=== PATIENT | female | born 1950 | race Caucasian/White ===

== ENCOUNTER → 2018-02-20 | Outpatient (CLI) | payer OTHER, BC ==
[~2018-02-20] VITALS: Ht 165.1 cm; Wt 67.6 kg
[~2018-02-20] MED LIST: ALEVE220 MG; CENTRUM SILVER1 EAC4 PO; CRESTOR40 MG PO; IBUPROFEN 200200 M1 PO; LEVOXYL88 MCG PO; PROZAC10 MG PO; PROZAC20 MG PO; TYLENOL EXTRA500 MG PO; WELLBUTRIN SR150 MG PO
--- NOTE | ~2018-02-20 | P ---
[facility] [place] [address] [place] [address] PROCEDURE REPORT Name: DOTYCHRISTINA Room #: REG MARISSA Mayfield#: [id number] Admission: 02/20/18 Attend Phys: Mick Nicholson DO Discharge: Date of : 46 Report #: [id number] THIS REPORT FOR: //name// CC: FAM physician/PCP Mick Workman NP DATE OF SERVICE: 02/20/2018 DESCRIPTION OF PROCEDURE: L5-S1 left paramedian epidural steroid injection under fluoroscopic guidance. This is the third procedure of the first series that the patient is undergoing. After obtaining written consent, the patient was taken back to the fluoroscopy suite, placed in a prone position with pillow under the abdomen to decrease lumbar lordosis. The skin overlying the lumbosacral area was then prepped and draped in aseptic fashion. The L5-S1 vertebral interspace was then identified by AP fluoroscopy. The skin and subcutaneous tissue overlying the target site of injection was anesthetized with 3 mL 1% lidocaine. A 20-gauge 3-1/2-inch Tuohy needle was then advanced under fluoroscopic guidance towards the epidural space using a left paramedian approach. The epidural space was identified using loss of resistance to air technique. After negative aspiration for heme or cerebrospinal fluid, a total of 0.5 mL of Omnipaque was injected. A lumbar epidurogram was confirmed using both AP and lateral fluoroscopy. After negative aspiration for heme or cerebrospinal fluid, 4 mL of a solution containing 2 mL 40 mg per mL, 80 mg total triamcinolone and 2 mL of lidocaine 1% was injected in increments. Contrast spread was noted posterior epidural space. The needle was then retracted approximately half way and needle tract flushed with 1 mL of 1% lidocaine. Needle was then removed. There were no apparent sensory or motor deficits in the lower extremity following the procedure. A sterile bandage was placed over the injection site. The heart rate, pulse, oximetry and blood pressure were continuously monitored after the procedure. There were no apparent complications. The patient tolerated the procedure well and was carefully escorted to the recovery room in stable condition. There were no apparent complications. After meeting discharge criteria, the patient was then discharged home. By: [id number] Mick Nicholson DO /nt
--- NOTE | ~2018-02-20 | HPC ---
[facility] [place] [address] [place] [address] PAIN MANAGEMENT CONSULTATION Name: CHRISTINA DOTY SONYA Room #: REG MARISSA Chaparro#: [id number] Admission: 02/20/18 Attend Phys: Mick Nicholson DO Discharge: Date of : 46 Report #: [id number] THIS REPORT FOR: //name// CC: FAM physician/PCP Mick Workman NP DATE OF SERVICE: 02/20/2018 CHIEF COMPLAINT: Low back pain, left lower extremity pain with paresthesias. HISTORY OF PRESENT ILLNESS: As you know, the patient is a very pleasant 67-year-old female who returns today in followup visit per the request of her neurosurgery team to undergo the third in the series of lumbar epidural injections in the 6 months. The patient underwent epidural injections 10/17/2017, repeating epidural injection 11/01/2017. She reports the combination of these injections provided greater than 50% improvement in overall pain. Unfortunately, the patient's symptoms have begun to return. She returns today in followup visit to undergo next in the series of requested lumbar epidural injections completing the 3 in the 6 months. She denies new injury, new trauma or any changes in medical history since our last visit. ALLERGIES: PAROXETINE. CURRENT MEDICATIONS: Acetaminophen, ibuprofen, naproxen, multivitamin, levothyroxine, fluoxetine, lovastatin, bupropion. SOCIAL HISTORY: The patient denies tobacco, alcohol, IV or illicit drug use. She is retired in 2009, unaccompanied today. IMAGING: No new imaging available. PQRS: The patient has osteoarthritic changes in low back. No rheumatoid arthritis. She has a pain intensity today reported at around 6/10. She is not a fall risk, has not had a fall in the last 3 months. She is not on blood thinners, nor she is treated for hypertension. She is not on opioid and does have a low opioid addiction potential. She is placing pain impact score 61/70, severe interference to near complete interference of daily activities secondary to pain. PHYSICAL EXAMINATION: VITAL SIGNS: Blood pressure 139/64, pulse 77, respiratory rate 14 and unlabored. The patient is 98% on room air. Height 5 feet 5 inches tall, weight 149 pounds, BMI calculated 24.8. GENERAL: Well-developed, well-nourished, well-hydrated 67-year-old female [address] [address] PAIN MANAGEMENT CONSULTATION Name: CHRISTINA DOTY SONYA Room #: REG MARISSA Chaparro#: [id number] Admission: 02/20/18 Attend Phys: Mick Nicholson DO Discharge: Date of : 46 Report #: [id number] appearing stated age. She is placing current pain score at around 6/10. HEENT: Normocephalic, atraumatic. Pupils equal, round, reactive to light. Extraocular muscles are intact. EXTREMITIES: Show no clubbing, no cyanosis, no edema. MUSCULOSKELETAL: Lower extremity strength is symmetrical again today 5/5. Seated straight leg raising negative. Supine straight leg raising positive on the left. Jc's test negative. Gait mildly antalgic favoring left lower extremity over right. ASSESSMENT: 1. Symptomatic lumbar radiculopathy. 2. Spinal stenosis of lumbar spine. 3. Neuroforaminal stenosis of the lumbar spine. 4. Displacement of lumbar intervertebral disk with radiculopathy. 5. Lumbosacral spondylosis with radiculopathy. 6. Lumbar degeneration. 7. Chronic intractable pain. PLAN: 1. The patient returns today in followup visit requesting to undergo next in the series of epidural injections. She states the combination of the 2 injections in October provided 50% improvement in overall pain lasting until just recently where she has a slow and progressive return of symptoms. She believes that her symptoms have progressed due to increasing activity over the holidays. She returns requesting the third in the 6-month series of epidural injections. She is advised risks and benefits, states she understood and wished to proceed. 2. No medication changes made at today's visit. The patient will continue current medication management as previously prescribed. 3. We will see the patient back in followup visit on an as needed basis for possible next in the series of lumbar epidural injections. By: [id number] Mick Nicholson DO /nt
[2018-02-20 12:54] VITALS: BP 139/64
--- NOTE | 2018-02-20 12:58 | NUR ---
Pain Clinic Assessment: 1. History of Osteoarthritis: Not Applicable History of Rheumatoid Arthritis: Not Applicable 2. Height: 5 ft. 5 in. 165.1 cm. Weight: 149.0 lb. oz. 67.586 kg. Patient's BMI: 24.8 3. Vital Signs: BP: 139/64 Pulse: 77 Resp: 14 Temp: 02 Sat: 98 ECG Mon: 4. Pain Intensity: 6 5. Fall Risk: Dizziness: N Needs help standing or walking: N Fallen in the last 3 months: N Fall risk comments: 6. Patient on Blood Thinner: None 7. History of Hypertension: N 8. Opioid Therapy greater than 6 weeks: N Opiate Contract Signed: 9. Risk Assessment Tool Provided: LOW RISK 02/15 10. Functional Assessment Tool: 11. Recreational Drug Use: Never Drug Type: Tobacco Use: Never Smoker Tobacco Type: Amount or Packs/day: How Many Years: Alcohol Use: No Frequency: Quant:
== END | disposition home or self-care (01) ==
LOC: PAIN 01-24 16:53
DX: M51.16 Intervertebral disc disorders with radiculopathy, lumbar region (principal); M48.061 Spinal stenosis, lumbar region without neurogenic claudication; M47.27 Other spondylosis with radiculopathy, lumbosacral region; G89.29 Other chronic pain; Z88.8 Allergy status to other drugs, medicaments and biological substances; Z79.899 Other long term (current) drug therapy

== ENCOUNTER → 2018-12-05 | Outpatient (CLI) | payer OTHER, BC ==
[~2018-12-05] VITALS: Ht 165.1 cm; Wt 63.5 kg
[2018-12-05 10:43] VITALS: BP 117/57
--- NOTE | 2018-12-05 10:53 | NUR ---
Pain Clinic Assessment: 1. History of Osteoarthritis: Not Applicable History of Rheumatoid Arthritis: Not Applicable 2. Height: 5 ft. 5 in. 165.1 cm. Weight: 140.0 lb. oz. 63.504 kg. Patient's BMI: 23.3 3. Vital Signs: BP: 117/57 Pulse: 82 Resp: 16 Temp: 02 Sat: 96 ECG Mon: 4. Pain Intensity: 7 5. Fall Risk: Dizziness: N Needs help standing or walking: N Fallen in the last 3 months: N Fall risk comments: 6. Patient on Blood Thinner: None 7. History of Hypertension: N 8. Opioid Therapy greater than 6 weeks: N Opiate Contract Signed: 9. Risk Assessment Tool Provided: LOW RISK 02/15 10. Functional Assessment Tool: 11. Recreational Drug Use: Never Drug Type: Tobacco Use: Never Smoker Tobacco Type: Amount or Packs/day: How Many Years: Alcohol Use: No Frequency: Quant:
--- NOTE | 2018-12-18 12:48 | HPC ---
[facility] [address] [place] [address] PAIN MANAGEMENT CONSULTATION Name: CHRISTINA DOTY SONYA Room #: REG MARISSA Chaparro#: [id number] Admission: 12/05/18 Attend Phys: Mick Nicholson DO Discharge: Date of : 46 Report #: [id number] THIS REPORT FOR: //name// CC: [facility] physician/PCP Mick Workman NP DATE OF SERVICE: 12/05/2018 CHIEF COMPLAINT: Low back pain, left lower extremity pain and paresthesias. HISTORY OF PRESENT ILLNESS: As you know, patient is a 68-year-old female who returns today in followup visit with recurrent lumbar radicular symptoms, now placing pain score 7/10. The patient reports excellent benefit with previous epidural injection, adding 80% improvement in overall pain until just recently where she had a slow and progressive return of symptoms. She returns today in followup visit requesting to undergo next in the series of lumbar epidural injections to build on success of previous intervention. The patient denies injury or trauma that may have led to symptom development. She is placing her pain score today 7/10. ALLERGIES: PAROXETINE. CURRENT MEDICATIONS: Acetaminophen, ibuprofen, naproxen, multivitamin, levothyroxine, fluoxetine, lovastatin, and bupropion. SOCIAL HISTORY: The patient denies tobacco, alcohol, IV or illicit drug use. She retired in 2009, not receiving workmen's compensation, unaccompanied today. IMAGING: No new imaging available. PQRS: The patient has known osteoarthritic changes of the lumbar spine. No rheumatoid arthritis. She is placing pain intensity is 7/10, not a fall risk, has not had a fall in last 3 months. She takes no blood thinners. She is not treated for hypertension. She is not on chronic opioid. She has a low opioid addiction potential based on our assessment tool. Pain impact score 38/70 moderate interference of daily activities secondary to pain. PHYSICAL EXAMINATION: VITAL SIGNS: Blood pressure 117/57, pulse 82, respiratory rate 16 and unlabored. The patient is 96% on room air. Height 5 feet 5 inches tall, weight 140 pounds and BMI calculated 23.3. GENERAL: Well-developed, well-nourished, well-hydrated 68-year-old female appearing stated age, pain is rated today at 7/10. HEENT: Normocephalic, atraumatic. Pupils equal, round, reactive to light. [facility] [address] [place] [address] PAIN MANAGEMENT CONSULTATION Name: CHRISTINA DOTY SONYA Room #: REG CLI Chaparro#: [id number] Admission: 12/05/18 Attend Phys: Mick Nicholson DO Discharge: Date of : 46 Report #: [id number] Speech fluent. EXTREMITIES: Show no clubbing, no cyanosis, and no edema. MUSCULOSKELETAL: Lower extremity strength is symmetrical again today. Muscle bulk and tone equal and symmetrical in comparing left lower extremity to right. Seated straight leg raising negative. Supine straight leg raising positive on the left. Gait is improved, but remains mildly antalgic on the left. ASSESSMENT: 1. Symptomatic lumbar radiculopathy. 2. Spinal stenosis of lumbar spine. 3. Neural foraminal stenosis of lumbar spine. 4. Displacement of lumbar intervertebral disk with radiculopathy. 5. Lumbosacral spondylosis with radiculopathy. 6. Lumbar degeneration. 7. Chronic intractable pain. PLAN: 1. The patient returns today in followup visit requesting to undergo next in the series of lumbar epidural injections under fluoroscopic guidance. The patient reports about 80% improvement in overall pain with previous epidural injection lasting until just recently where she has had a slow and progressive return of symptoms. She returns today in followup visit requesting to undergo the next in the series of epidural injections in hopes of improving overall pain and building on success of previous intervention. The patient has been advised risks and benefits of procedure, states understood and wished to proceed. 2. No medication changes made at today's visit. The patient will continue current medical therapy as previously prescribed. 3. We will see the patient back in followup visit on an as needed basis for possible next in the series of lumbar epidural injections. PROCEDURE NOTE DESCRIPTION OF PROCEDURE: L5-S1 left parasagittal epidural steroid injection under fluoroscopic guidance. After obtaining written consent, patient was taken back to fluoroscopy suite, placed in prone position with pillow under abdomen to decrease lumbar lordosis. Skin overlying lumbosacral area then prepped and draped in aseptic fashion. The L5-S1 vertebral interspace identified by AP fluoroscopy. Skin and subcutaneous tissue overlying target site of injection anesthetized with 3 mL of 1% lidocaine. A 20-gauge 3-1/2 inch Tuohy needle advanced under fluoroscopic guidance towards the epidural space using a left parasagittal approach. Epidural space identified using loss of resistance to air technique. After negative aspiration for heme or cerebrospinal fluid, 1 mL of Omnipaque injected. A lumbar [facility] [address] [place] [address] PAIN MANAGEMENT CONSULTATION Name: CHRISTINA DOTY SONYA Room #: REG CLOksana Mayfield#: [id number] Admission: 12/05/18 Attend Phys: Mick Nicholson DO Discharge: Date of : 46 Report #: [id number] epidurogram was confirmed using both AP and lateral fluoroscopy. After negative aspiration for heme or cerebrospinal fluid, 5 mL of solution containing 2 mL 40 mg per mL, 80 mg total triamcinolone along with 3 mL of lidocaine 1% injected slowly. Needle then retracted assisted, flushed with 1 mL of 1% lidocaine and removed. Sterile bandage placed over injection site. No new motor deficits present in the lower extremities following procedure. The patient tolerated the procedure well, carefully escorted to recovery room in stable condition. No apparent complications. After meeting our discharge criteria, patient discharged home. <ELECTRONICALLY SIGNED> By: Mick Nicholson DO 12/18/18 [id number] Mick Nicholson DO /nt
== END | disposition home or self-care (01) ==
LOC: PAIN 06:56
DX: M51.16 Intervertebral disc disorders with radiculopathy, lumbar region (principal); M48.061 Spinal stenosis, lumbar region without neurogenic claudication; M47.27 Other spondylosis with radiculopathy, lumbosacral region; G89.29 Other chronic pain; Z98.890 Other specified postprocedural states; Z88.8 Allergy status to other drugs, medicaments and biological substances; Z79.899 Other long term (current) drug therapy

== ENCOUNTER → 2019-03-05 | Outpatient (CLI) | payer OTHER, BC ==
[~2019-03-05] VITALS: Ht 165.1 cm; Wt 62.9 kg
[2019-03-05 10:13] VITALS: BP 120/69
--- NOTE | 2019-03-05 10:39 | NUR ---
Pain Clinic Assessment: 1. History of Osteoarthritis: Not Applicable History of Rheumatoid Arthritis: Not Applicable 2. Height: 5 ft. 5 in. 165.1 cm. Weight: 138.6 lb. oz. 62.868 kg. Patient's BMI: 23.1 3. Vital Signs: BP: 120/69 Pulse: 76 Resp: 14 Temp: 02 Sat: 97 ECG Mon: 4. Pain Intensity: 7 5. Fall Risk: Dizziness: N Needs help standing or walking: N Fallen in the last 3 months: N Fall risk comments: 6. Patient on Blood Thinner: None 7. History of Hypertension: N 8. Opioid Therapy greater than 6 weeks: N Opiate Contract Signed: 9. Risk Assessment Tool Provided: LOW RISK 02/15 10. Functional Assessment Tool: 11. Recreational Drug Use: Never Drug Type: Tobacco Use: Never Smoker Tobacco Type: Amount or Packs/day: How Many Years: Alcohol Use: No Frequency: Quant:
--- NOTE | 2019-03-06 11:48 | HPC ---
[facility] [place] [address] PAIN MANAGEMENT CONSULTATION Name: CHRISTINA DOTY SONYA Room #: REG MARISSA Kitty.#: [id number] Admission: 03/05/19 Attend Phys: Mick Nicholson DO Discharge: Date of : 46 Report #: [id number] THIS REPORT FOR: //name// CC: ROBERT Mario MD Physician staff GEOFF JIMENEZ DATE OF SERVICE: 03/05/2019 CHIEF COMPLAINT: Low back pain, left lower extremity pain with paresthesias. HISTORY OF PRESENT ILLNESS: As you know, the patient is a 68-year-old female returning in followup visit to undergo next in the series of lumbar epidural injections under fluoroscopic guidance. The last epidural injection she underwent gave 75% improvement in overall pain, lasting for greater than 2 months. Unfortunately, she has had a slow and progressive return of symptoms. She is now placing her pain score at around 7/10. She returns today in followup visit to undergo next in the series of epidural injections. ALLERGIES: PAROXETINE. CURRENT MEDICATIONS: Acetaminophen, ibuprofen, naproxen, multivitamin, levothyroxine, fluoxetine, lovastatin and bupropion. SOCIAL HISTORY: The patient denies tobacco, alcohol, IV or illicit drug use. She retired in 2009, unaccompanied today. IMAGING: No new imaging available. PQRS: The patient has known arthritic changes of the lumbar spine. No rheumatoid arthritis. She is placing pain today at 7/10. Not a fall risk, has not had a fall in last 3 months. She is not on blood thinners, nor she is treated for hypertension. She is not on chronic opioids, has a low opioid addiction potential. Pain impact score 61/70, indicating severe interference of daily activities secondary to pain. PHYSICAL EXAMINATION: VITAL SIGNS: Blood pressure 120/69, pulse 76, respiratory rate 14 and unlabored. The patient is 97% on room air. Height 5 feet 5 inches tall, weight 138 pounds, BMI calculated 23.1. GENERAL: Well-developed, well-nourished, well-hydrated 68-year-old female, appearing stated age, pain is rated today 7/10. HEENT: Normocephalic, atraumatic. Pupils equal, round, reactive to light. Speech fluent. [address] [address] PAIN MANAGEMENT CONSULTATION Name: CHRISTINA DOTY SONYA Room #: REG [facility] Kitty.#: [id number] Admission: 03/05/19 Attend Phys: Mick Nicholson DO Discharge: Date of : 46 Report #: [id number] EXTREMITIES: Show no clubbing, no cyanosis and no edema. MUSCULOSKELETAL: Lower extremity strength equal and symmetrical, 5/5. Muscle bulk and tone equal and symmetrical in comparing lower extremities. Gait is mildly antalgic, favoring left lower extremity. Ankle clonus negative. Babinski is negative. Seated straight leg raising negative. Supine straight leg raising positive on the left. ASSESSMENT: 1. Symptomatic lumbar radiculopathy. 2. Spinal stenosis of the lumbar spine. 3. Neural foraminal stenosis of the lumbar spine. 4. Displacement of lumbar intervertebral disk with radiculopathy. 5. Lumbosacral spondylosis with radiculopathy. 6. Lumbar degeneration. 7. Chronic intractable pain. PLAN: 1. The patient returns today in followup visit to undergo next in the series of lumbar epidural injections under fluoroscopic guidance. She reports greater than 75% improvement in overall pain, lasting for nearly 2 months. She returns today with recurrent pain, now placing pain score at 7/10, requesting next in series of epidural injections. She has been advised risks and benefits of procedure, states she understood and wished to proceed. 2. No medication changes made at today's visit. The patient will continue current medical therapy as prior prescribed. 3. We will see the patient back in followup visit on an as needed basis for possible next in the series of lumbar epidural injections. PROCEDURE NOTE DESCRIPTION OF PROCEDURE: L5-S1 left parasagittal epidural steroid injection under fluoroscopic guidance. After obtaining written consent, the patient was taken back to fluoroscopy suite, placed in prone position with pillow under abdomen to decrease lumbar lordosis. Skin overlying lumbosacral area then prepped and draped in aseptic fashion. The L5-S1 vertebral interspace identified by AP fluoroscopy. Skin and subcutaneous tissue overlying target site of injection anesthetized with 3 mL of 1% lidocaine. A 20-gauge 3-1/2 inch Tuohy needle advanced under fluoroscopic guidance towards the epidural space using a left parasagittal approach. Epidural space identified using loss of resistance to air technique. After negative aspiration for heme or cerebrospinal fluid, 1 mL of Omnipaque injected. A lumbar epidurogram confirmed using both AP and lateral fluoroscopy. After negative aspiration for heme or cerebrospinal fluid, 5 mL of a solution containing 2 mL [facility] [address] [place] [address] PAIN MANAGEMENT CONSULTATION Name: CHRISTINA DOTY #: REG MARISSA Mayfield#: [id number] Admission: 03/05/19 Attend Phys: Mick Nicholson DO Discharge: Date of : 46 Report #: [id number] 40 mg per mL, 80 mg total triamcinolone along with 3 mL lidocaine 1% injected slowly. Needle retracted approximately half way, flushed with 1 mL of 1% lidocaine and then removed. Sterile bandage placed over injection site. No new motor deficits present in lower extremity following procedure. The patient tolerated procedure well, carefully escorted to recovery room in stable condition. No apparent complications. After meeting discharge criteria, the patient discharged home. <ELECTRONICALLY SIGNED> By: Mick Nicholson DO 03/06/19 1148 1336 05 Mick Nicholson DO /nt
== END | disposition home or self-care (01) ==
LOC: PAIN 06:48
DX: M51.16 Intervertebral disc disorders with radiculopathy, lumbar region (principal); M48.061 Spinal stenosis, lumbar region without neurogenic claudication; M47.27 Other spondylosis with radiculopathy, lumbosacral region; G89.29 Other chronic pain; Z98.890 Other specified postprocedural states; Z79.899 Other long term (current) drug therapy; Z88.8 Allergy status to other drugs, medicaments and biological substances

== ENCOUNTER → 2019-08-27 | Outpatient (CLI) | payer OTHER, BC ==
[~2019-08-27] VITALS: Ht 165.1 cm; Wt 55.6 kg
[~2019-08-27] MED LIST changes: +LEVOXYL100 MCG PO; -LEVOXYL88 MCG PO; +VITAMIN D325 MC1 PO
--- NOTE | ~2019-08-27 | HPC ---
[facility] [place] [address] PAIN MANAGEMENT CONSULTATION Name: CHRISTINA DOTY Room #: REG MARISSA CastroMeenuLizbeth.#: [id number] Admission: 08/27/19 Attend Phys: Mick Nicholson DO Discharge: Date of : 46 Report #: [id number] THIS REPORT FOR: cc: ROBERT CRENSHAW Physician not on staff Mick Nicholson DO ~ CC: ROBERT Mario MD Physician staff Staci Workman NP DATE OF SERVICE: 08/27/2019 CHIEF COMPLAINT: Low back pain, left lower extremity pain and paresthesias. HISTORY OF PRESENT ILLNESS: As you know, the patient is a 68-year-old female returning in followup visit with recurrent lumbar radicular symptoms. She is placing her current pain score at around 8/10. She reports the previous epidural injection gave 80% improvement in overall pain lasting for nearly 5 months. Unfortunately, her symptoms have begun to return. She is describing pain involving low back and left lower extremity. She describes the pain as radiating, continuous, shooting and fatiguing in its presentation. She returns today in followup visit, denying any new injury or trauma that may have led to symptom reoccurrence. She returns for the next in the series of epidural injections. ALLERGIES: PAROXETINE. CURRENT MEDICATIONS: Bupropion SR 150 mg once a day, rosuvastatin 40 mg per day, Prozac 20 mg per day, levothyroxine 100 mcg per day, multivitamin 1 tab per day, naproxen sodium 220 mg per day, acetaminophen extra strength 500 mg once a day, cholecalciferol 50 mcg per day. SOCIAL HISTORY: The patient denies tobacco, alcohol, IV or illicit drug use. She retired in 2009. She is unaccompanied today. IMAGING: No new imaging available. PQRS: The patient has known arthritic changes of the lumbar spine. No rheumatoid arthritis, placing pain score at 8/10. She is not a fall risk and has not had a fall in last 3 months. She is not on blood thinners, nor is she treated for hypertension. She is not on chronic opioids and has a low opioid addiction potential. Pain impact score 61/70, severe near complete interference of daily activities secondary to pain. [address] [address] PAIN MANAGEMENT CONSULTATION Name: CHRISTINA DOTY SONYA Room #: REG [facility] Chaparro#: [id number] Admission: 08/27/19 Attend Phys: Mick Nicholson DO Discharge: Date of : 46 Report #: [id number] PHYSICAL EXAMINATION: VITAL SIGNS: Blood pressure 115/66, pulse 80, respiratory rate 16 and unlabored. The patient is 97% on room air. Height 5 feet 5 inches tall, weight 122.6 pounds, BMI calculated 20.4. GENERAL: Well-developed, well-nourished, well-hydrated 68-year-old female appearing her stated age. She is in no acute distress, awake, alert and oriented x 3, pain is rated today at 8/10. HEENT: Normocephalic, atraumatic. Pupils equal, round and reactive. Speech is fluent. EXTREMITIES: Show no clubbing, no cyanosis, and no edema. MUSCULOSKELETAL: Lower extremity strength equal and symmetrical 5/5, intact to light touch from L1 through S2 dermatomes. Seated straight leg raising negative. Supine straight leg raising positive on the left. Jc's test negative. Gait mildly antalgic favoring left lower extremity. ASSESSMENT: 1. Symptomatic lumbar radiculopathy. 2. Spinal stenosis of lumbar spine. 3. Neural foraminal stenosis of lumbar spine. 4. Displacement of lumbar intervertebral disk with radiculopathy. 5. Lumbosacral spondylosis with radiculopathy. 6. Lumbar degeneration. 7. Chronic intractable pain. PLAN: 1. The patient returns today in followup visit requesting to undergo next in the series of lumbar epidural injections under fluoroscopic guidance. Pain is well controlled with previous epidural injection for which the patient received about 80% improvement in overall pain lasting for up to 5 months. Unfortunately, her symptoms have begun to return. She returns today in followup visit to undergo next in the series. The patient has been advised risks and benefits of a lumbar epidural injection. These risks include but are not necessarily limited to bleeding, bruising, infection, worsening pain, no relief of pain, also risk of temporary or permanent muscle weakness, temporary or permanent nerve damage, possible paralysis and . The patient states understood and wished to proceed. 2. No medication changes made at today's visit. The patient will continue current medical therapy as prior prescribed. 3. We will see the patient back in followup visit on an as needed basis possible next in the series of lumbar epidural injections. We are hopeful the patient will see good and prolonged benefit with today's procedure. PROCEDURE NOTE: DESCRIPTION OF PROCEDURE: L5-S1 interlaminar epidural steroid injection under [facility] [address] [place] [address] PAIN MANAGEMENT CONSULTATION Name: CHRISTINA DOTY [facility] #: [facility] [id number] Admission: 08/27/19 Attend Phys: Mick Nicholson DO Discharge: Date of : 46 Report #: [id number] fluoroscopic guidance. After obtaining written consent, the patient was taken back to fluoroscopy suite, placed in prone position with pillow under abdomen to decrease lumbar lordosis. Skin overlying the lumbosacral area then prepped and draped in aseptic fashion. Lumbar intervertebral spaces were identified by AP fluoroscopy. Skin and subcutaneous tissue overlying target site of injection anesthetized with 3 mL of 1% lidocaine. A 20-gauge 3-1/2 inch Tuohy needle advanced under fluoroscopic guidance towards the epidural space using a paramedian approach. Epidural space identified using loss of resistance to air technique. After negative aspiration for heme or cerebrospinal fluid, 1 mL of Omnipaque injected. Lumbar epidurogram confirmed using both the AP and lateral fluoroscopy. After negative aspiration for heme or cerebrospinal fluid, 5 mL of a solution containing 2 mL 40 mg per mL, 80 mg total triamcinolone along with 3 mL of lidocaine 1% injected slowly. Needle retracted approximately half way, flushed with 1 mL of 1% lidocaine and then removed. Sterile bandage placed over injection site. No new motor deficits present in lower extremity following procedure. The patient tolerated procedure well, carefully escorted to recovery room in stable condition. No apparent complications. After meeting discharge criteria, the patient discharged home. By: [id number] Mick Nicholson DO /nt
[2019-08-27 08:30] VITALS: BP 115/66
--- NOTE | 2019-08-27 08:52 | NUR ---
Pain Clinic Assessment: 1. History of Osteoarthritis: Not Applicable History of Rheumatoid Arthritis: Not Applicable 2. Height: 5 ft. 5 in. 165.1 cm. Weight: 122.6 lb. oz. 55.611 kg. Patient's BMI: 20.4 3. Vital Signs: BP: 115/66 Pulse: 80 Resp: 16 Temp: 02 Sat: 97 ECG Mon: 4. Pain Intensity: 8 5. Fall Risk: Dizziness: N Needs help standing or walking: N Fallen in the last 3 months: Y Fall risk comments: 6. Patient on Blood Thinner: None 7. History of Hypertension: N 8. Opioid Therapy greater than 6 weeks: N Opiate Contract Signed: 9. Risk Assessment Tool Provided: LOW RISK 02/15 10. Functional Assessment Tool: 11. Recreational Drug Use: Never Drug Type: Tobacco Use: Never Smoker Tobacco Type: Amount or Packs/day: How Many Years: Alcohol Use: No Frequency: Quant:
== END | disposition home or self-care (01) ==
LOC: PAIN 06:50
PROVIDERS: ATTEND Anesthesiology Pain Medicine
DX: M51.16 Intervertebral disc disorders with radiculopathy, lumbar region (principal); M48.061 Spinal stenosis, lumbar region without neurogenic claudication; M47.27 Other spondylosis with radiculopathy, lumbosacral region; G89.29 Other chronic pain; Z98.890 Other specified postprocedural states; Z79.899 Other long term (current) drug therapy

== ENCOUNTER → 2019-10-01 | Outpatient (CLI) | payer OTHER, BC ==
[~2019-10-01] VITALS: Ht 160 cm; Wt 55.2 kg
--- NOTE | 2019-10-01 12:43 | NUR ---
Pain Clinic Assessment: 1. History of Osteoarthritis: Not Applicable History of Rheumatoid Arthritis: Not Applicable 2. Height: ft. in. cm. Weight: lb. oz. kg. Patient's BMI: 3. Vital Signs: BP: Pulse: Resp: Temp: 02 Sat: ECG Mon: 4. Pain Intensity: 9 5. Fall Risk: Dizziness: N Needs help standing or walking: N Fallen in the last 3 months: N Fall risk comments: 6. Patient on Blood Thinner: None 7. History of Hypertension: N 8. Opioid Therapy greater than 6 weeks: N Opiate Contract Signed: 9. Risk Assessment Tool Provided: LOW RISK 02/15 10. Functional Assessment Tool: / 11. Recreational Drug Use: Never Drug Type: Tobacco Use: Never Smoker Tobacco Type: Amount or Packs/day: How Many Years: Alcohol Use: No Frequency: Quant:
[2019-10-01 12:52] VITALS: BP 100/66
--- NOTE | 2019-10-01 12:52 | NUR ---
Pain Clinic Assessment: 1. History of Osteoarthritis: Not Applicable History of Rheumatoid Arthritis: Not Applicable 2. Height: 5 ft. 3 in. 160.0 cm. Weight: 121.8 lb. oz. 55.248 kg. Patient's BMI: 21.6 3. Vital Signs: BP: 100/66 Pulse: 83 Resp: 18 Temp: 02 Sat: 98 ECG Mon: 4. Pain Intensity: 9 5. Fall Risk: Dizziness: N Needs help standing or walking: N Fallen in the last 3 months: N Fall risk comments: 6. Patient on Blood Thinner: None 7. History of Hypertension: N 8. Opioid Therapy greater than 6 weeks: N Opiate Contract Signed: 9. Risk Assessment Tool Provided: LOW RISK 02/15 10. Functional Assessment Tool: 11. Recreational Drug Use: Never Drug Type: Tobacco Use: Never Smoker Tobacco Type: Amount or Packs/day: How Many Years: Alcohol Use: No Frequency: Quant:
--- NOTE | 2019-10-02 12:57 | HPC ---
[facility] [place] [address] [place] [address] PAIN MANAGEMENT CONSULTATION Name: DOTYCHRISTINAION HASSAN Room #: REG Oksana Mayfield#: [id number] Admission: 10/01/19 Attend Phys: Mick Nicholson DO Discharge: Date of : 46 Report #: [id number] THIS REPORT FOR: cc: ROBERT CRENSHAW Physician not on staff Mick Nicholson DO ~ DATE OF SERVICE: 10/01/2019 CHIEF COMPLAINT: Low back pain, lower extremity pain with paresthesias, left greater than right. HISTORY OF PRESENT ILLNESS: As you know, the patient is a 69-year-old female returning in followup visit for lumbar radiculopathy. As you are aware, the patient has severe central canal stenosis at the L4-L5 level with reduction of thecal sac to only 5 mm and this is based on imaging from 2018. She underwent epidural injection under fluoroscopic guidance at her last visit, which unfortunately did not provide long-term analgesic benefit. The patient reports that she is now at a pain level of 9/10. She describes the pain as radiating, continuous, shooting and fatiguing in nature. Pain exacerbates activities, getting up from chairs, walking and standing, improves with moving carefully and previous epidural injections. She reports that this last injection gave 50% improvement in overall pain lasting for about 2 weeks. She denies new injury or trauma that may have led to symptom reoccurrence. She returns today to undergo the next in the series of epidural injections in hopes of improving pain. She has not followed up with Neurosurgery to date. ALLERGIES: PAROXETINE. CURRENT MEDICATIONS: See chart. SOCIAL HISTORY: The patient denies tobacco, alcohol, IV or illicit drug use. She retired in 2009. She is unaccompanied today. IMAGING: No new imaging available. PQRS: The patient has known arthritic changes of the lumbar spine. No rheumatoid arthritis. She is placing pain intensity 9/10. She is not a fall risk nor she had a fall in last 3 months. She is not on blood thinners, nor she is treated for hypertension. She is not on chronic opioids, has a low opiate addiction potential. Pain impact is 61/70, severe interference of daily activities secondary to pain. PHYSICAL EXAMINATION: VITAL SIGNS: Blood pressure 100/66, pulse 83, respiratory rate 18 and unlabored. The patient is 98% on room air. Height 5 feet 3 inches tall, weight [facility] [address] [place] [address] PAIN MANAGEMENT CONSULTATION Name: CHRISTINA DOTY SONYA Room #: REG CLI [facility]#: [id number] Admission: 10/01/19 Attend Phys: Mick Nicholson DO Discharge: Date of : 46 Report #: [id number] 121.8 pounds, BMI calculated 21.6. GENERAL: Well-developed, well-nourished, well-hydrated 69-year-old female appearing stated age, pain is rated today 9/10. HEENT: Normocephalic, atraumatic. Pupils are equal, round and reactive. NEUROLOGIC: Speech fluent. The patient is wearing a mask in response to COVID restrictions. EXTREMITIES: Show no clubbing, no cyanosis, no edema. MUSCULOSKELETAL: Lower extremity strength is symmetrical 5/5, intact to light touch from L1 through S2 dermatomes. Seated straight leg raising is positive. Supine straight leg raising is positive, both on the left. Jc's test is negative. Gait is antalgic favoring left lower extremity over right. Muscle bulk and tone appears symmetrical in comparing lower extremities. ASSESSMENT: 1. Symptomatic lumbar radiculopathy. 2. Progressively worsening spinal stenosis of the lumbar spine. 3. Neural foraminal stenosis of the lumbar spine. 4. Displacement of lumbar intervertebral disk with radiculopathy. 5. Lumbosacral spondylosis with radiculopathy. 6. Lumbar degeneration. 7. Chronic intractable pain. PLAN: 1. The patient returns today in followup visit requesting to undergo lumbar epidural injection under fluoroscopic guidance. She reports only a 50% improvement in overall pain lasting for just 2 weeks with previous epidural injection. We reviewed the films of the fluoroscopic imaging from our last visit and had excellent and appropriate spread of the medication in the epidural space. I am concerned that the patient's stenosis has progressed as there are only 3 reasons why epidural injections will fail. 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 A second is that the patient did something to exacerbate symptoms. The patient denies any activities that may have caused symptom recurrence. The only other reason shots would fail is a change in the pathology of the back, which is consistent with what the story is today. We have discussed this with the patient. She wishes to undergo next in the series of epidural injections in hopes of improving pain. If this does not improve her symptoms, she is considering surgical options. 2. The patient has been advised risks and benefits of a lumbar epidural injection. These risks include but are not necessarily limited to bleeding, bruising, infection, worsening pain, no relief of pain, also risk of temporary or permanent muscle weakness, temporary or permanent nerve damage, possible paralysis and . The patient states understood and wished to proceed. 3. No medication changes made at today's visit. The patient will continue current medical therapy as prior prescribed. 4. We will see the patient back in followup visit on an as needed basis for [facility] [address] [place] [address] PAIN MANAGEMENT CONSULTATION Name: SORENCHRISTINAION HASSAN Room #: REG CLI Noel.#: [id number] Admission: 10/01/19 Attend Phys: Mick Nicholson DO Discharge: Date of : 46 Report #: [id number] possible next in the series of epidural injections. We are hopeful the patient will see good benefit with today's procedure. PROCEDURE NOTE DESCRIPTION OF PROCEDURE: L5-S1 intralaminar epidural steroid injection under fluoroscopic guidance. After obtaining written consent, the patient was taken back to fluoroscopy suite, placed in prone position with pillow under abdomen to decrease lumbar lordosis. Skin overlying lumbosacral area then prepped and draped in aseptic fashion. The L5-S1 vertebral interspace identified by AP fluoroscopy. Skin and subcutaneous tissue overlying target site of injection anesthetized with 3 mL of 1% lidocaine. A 20-gauge 3-1/2 inch Tuohy needle advanced under fluoroscopic guidance towards the epidural space using a midline approach. Epidural space identified using loss of resistance to air technique. After negative aspiration for heme or cerebrospinal fluid, 1 mL of Omnipaque injected. Lumbar epidurogram confirmed using both AP and lateral fluoroscopy. After negative aspiration for heme or cerebrospinal fluid, 5 mL of a solution containing 2 mL 40 mg per mL, 80 mg total triamcinolone along with 3 mL of lidocaine 1% injected slowly. Needle retracted approximately half way, flushed with 1 mL of 1% lidocaine then removed. Sterile bandage placed over injection site. No new motor deficits present in lower extremity following procedure. The patient tolerated procedure well, carefully escorted to recovery room in stable condition. No apparent complications. After meeting our discharge criteria, the patient discharged home. <ELECTRONICALLY SIGNED> By: Mick Nicholson DO 10/02/19 [id number] Mick Nicholson DO /nt
== END ==
LOC: PAIN 06:55
PROVIDERS: ATTEND Anesthesiology Pain Medicine
DX: M54.5 Low back pain (principal); M47.27 Other spondylosis with radiculopathy, lumbosacral region; M48.061 Spinal stenosis, lumbar region without neurogenic claudication; M51.16 Intervertebral disc disorders with radiculopathy, lumbar region; G89.29 Other chronic pain; Z79.899 Other long term (current) drug therapy; Z98.890 Other specified postprocedural states; Z88.8 Allergy status to other drugs, medicaments and biological substances

== ENCOUNTER → 2019-12-18 | Outpatient (CLI) | payer OTHER, BC ==
[~2019-12-18] VITALS: Ht 162.6 cm; Wt 55.8 kg
[~2019-12-18] MED LIST changes: +CITRACAL + D M1 EACH PO
--- NOTE | ~2019-12-18 | HPC ---
[facility] [place] [address] PAIN MANAGEMENT CONSULTATION Name: CHRISTINA DOTY SONYA Room #: REG ARNAVkOsana Mayfield#: [id number] Admission: 12/18/19 Attend Phys: Mick Nicholson DO Discharge: Date of : 46 Report #: [id number] CC: ROBERT Nicholson Physician staff Staci Workman DATE OF SERVICE: 12/18/2019 CHIEF COMPLAINT: Low back pain, bilateral lower extremity pain with paresthesias, left greater than right. HISTORY OF PRESENT ILLNESS: As you know, the patient is a 69-year-old female returning in followup visit due to her recurrent lumbar radiculopathy. As you are aware, the patient has severe central canal stenosis at the L4-L5 level with reduction of the thecal space to 5 mm based on imaging provided to us dated 06/19/2017. She has undergone lumbar epidural injections under fluoroscopic guidance, each with improvement in symptoms, but each also showing less and less long-term efficacy. Most recent epidural injection according to the patient provided 50% improvement in overall pain, but only lasted for about 2 weeks. She returns today in followup visit requesting to undergo next in the series of epidural injections. She also wishes to discuss treatment options if this injection does not provide long-term benefit. She has denied injury or trauma that may have led to symptom reoccurrence. ALLERGIES: PAROXETINE. CURRENT MEDICATIONS: See chart. SOCIAL HISTORY: The patient denies tobacco, alcohol, IV or illicit drug use. She retired in 2009, unaccompanied today. IMAGING: No new imaging available. PQRS: The patient has known arthritic changes of the thoracic and lumbar spine. No rheumatoid arthritis. She is placing pain score at 6/10. She is not a fall risk, has not had a fall in last 3 months. She is not on blood thinners nor is she treated for hypertension. She is not on chronic opioids, has a low opiate addiction potential. Pain impact 58-70, severe interference of daily activities secondary to pain. PHYSICAL EXAMINATION: VITAL SIGNS: Blood pressure 103/59, pulse 82, respiratory rate 18 and unlabored. The patient is 95% on room air. Height 5 feet 4 inches tall, weight 123 pounds, BMI calculated 21.1. GENERAL: Well-developed, well-nourished, well-hydrated, scoliotic 69-year-old female appearing stated age, places current pain score 6/10. HEENT: Normocephalic, atraumatic. Pupils are reactive. The patient is wearing a mask in compliance with COVID-19 regulations. EXTREMITIES: Show no clubbing, no cyanosis, no edema. MUSCULOSKELETAL: Seated straight leg raising is positive. Supine straight leg raising positive, greater on the left, but also present on the right. Jc's test is negative. Gait is antalgic favoring left lower extremity. Muscle bulk and tone appears symmetrical in lower extremities. There is perceived weakness based on the patient's report. ASSESSMENT: 1. Symptomatic lumbar radiculopathy. 2. Severe near critical central canal stenosis of lumbar spine. 3. Neural foraminal stenosis of lumbar spine. 4. Displacement of lumbar intervertebral disk with radiculopathy. 5. Lumbosacral spondylosis with radiculopathy. 6. Lumbar degeneration. 7. Chronic intractable pain. PLAN: 1. The patient returns today in followup visit to discuss options for treatment as the epidural injections are providing benefit, but unfortunately the benefits are not long lived. Most recent epidural injection gave about 2 weeks of improvement in symptoms. She returns to discuss treatment options. Following was discussed with the patient today. We discussed physical therapy, stretching exercises and core strengthening as a treatment option. This would be quite beneficial I believe in helping with the lower extremity strength, balance, though I am not confident this will provide much in the way of analgesic benefit. We discussed medication management including nortriptyline, amitriptyline, Cymbalta, Lyrica, and gabapentin as treatment options. We discussed repeating epidural injection in hopes of improving pain further and ultimately surgical decompression. After reviewing risks and benefits of all proposed treatment options, the patient requested physical therapy and a lumbar epidural injection. 2. The patient has been advised risks and benefits of a lumbar epidural injection. These risks include but are not necessarily limited to bleeding, bruising, infection, worsening pain, no relief of pain, also risk of temporary or permanent muscle weakness, temporary or permanent nerve damage, possible paralysis and . The patient states understood and wished to proceed. 3. The patient will be sent for physical therapy twice a week for 6 weeks. She will begin this process starting next week. We wish to delay starting physical therapy until which time the epidural injection has had a chance to become effective. We recommend starting next week. She was given a prescription to begin physical therapy as quickly as possible. 4. We do recommend that she follow up with nurse practitioner, Staci Workman in regards to surgical options. I do believe that her stenosis has progressed from the imaging of 06/2017 provided to us and may need further imaging and surgical consultation. She will contact the neurosurgery team at her earliest convenience. 5. We plan to see the patient back in followup visit on an as needed basis for possible next in the series of epidural injections. We are hopeful the epidural provided today along with the physical therapy provides good and prolonged benefit. PROCEDURE NOTE DESCRIPTION OF PROCEDURE: L5-S1 left paramedian epidural steroid injection under fluoroscopic guidance. After obtaining written consent, the patient was taken back to fluoroscopy suite, placed in prone position with pillow under abdomen to decrease lumbar lordosis. Skin overlying lumbosacral area prepped and draped in aseptic fashion. L5-S1 vertebral interspace identified by AP fluoroscopy. Skin and subcutaneous tissue overlying target site injection anesthetized with 3 mL of 1% lidocaine. A 20-gauge 3-1/2 inch Tuohy needle advanced under fluoroscopic guidance towards the epidural space using left paramedian approach. Epidural space identified using loss of resistance to air technique. After negative aspiration for heme or cerebrospinal fluid, 1 mL of Omnipaque injected. Lumbar epidurogram was confirmed using both AP and lateral fluoroscopy. After negative aspiration for heme or cerebrospinal fluid, 5 mL of a solution containing 2 mL 40 mg per mL, 80 mg total triamcinolone along with 3 mL of lidocaine 1% injected slowly. Needle retracted residential, flushed with 1 mL of 1% lidocaine and removed. Sterile bandage placed over injection site. No new motor deficits present in the lower extremities following procedure. The patient tolerated procedure well, carefully escorted to recovery room in stable condition. No apparent complications. After meeting discharge criteria, the patient discharged home. By: [id number] Mick Nicholson DO /nt
[2019-12-18 12:43] VITALS: BP 103/59
--- NOTE | 2019-12-18 12:52 | NUR ---
Pain Clinic Assessment: 1. History of Osteoarthritis: Not Applicable History of Rheumatoid Arthritis: Not Applicable 2. Height: 5 ft. 4 in. 162.6 cm. Weight: 123.0 lb. oz. 55.792 kg. Patient's BMI: 21.1 3. Vital Signs: BP: 103/59 Pulse: 82 Resp: 18 Temp: 02 Sat: 95 ECG Mon: 4. Pain Intensity: 6 5. Fall Risk: Dizziness: N Needs help standing or walking: N Fallen in the last 3 months: N Fall risk comments: 6. Patient on Blood Thinner: None 7. History of Hypertension: N 8. Opioid Therapy greater than 6 weeks: N Opiate Contract Signed: 9. Risk Assessment Tool Provided: LOW RISK 1 10. Functional Assessment Tool: 58/70 11. Recreational Drug Use: Never Drug Type: Tobacco Use: Never Smoker Tobacco Type: Amount or Packs/day: How Many Years: Alcohol Use: No Frequency: Quant:
== END | disposition home or self-care (01) ==
LOC: PAIN 06:53
PROVIDERS: ATTEND Anesthesiology Pain Medicine
DX: M51.16 Intervertebral disc disorders with radiculopathy, lumbar region (principal); M47.27 Other spondylosis with radiculopathy, lumbosacral region; M48.061 Spinal stenosis, lumbar region without neurogenic claudication; G89.29 Other chronic pain; Z98.890 Other specified postprocedural states; Z79.899 Other long term (current) drug therapy; Z88.8 Allergy status to other drugs, medicaments and biological substances